=== PATIENT | male | born 1975 | race American Indian/Alaskan Native ===

== ENCOUNTER 2019-09-15 14:15 | Emergency (ER) | payer OTHER ==
--- NOTE | 2019-09-15 14:43 | EDM.PDOC ---
"ED HPI GENERAL MEDICAL PROBLEM - General Chief Complaint: Abdominal Pain Stated Complaint: STOMACH PAIN Time Seen by Provider: 09/15/19 14:43 Source of Information: Reports: Patient, Old Records, RN, RN Notes Reviewed History Limitations: Reports: No Limitations - History of Present Illness INITIAL COMMENTS - FREE TEXT/NARRATIVE: Pt presents to ED via POV with c/o generalized upper abdominal pain from the midline to the right upper abdomen. Pt states that he has had the pain for a few days. He was eating soup last evening and pain got worse and he became nauseated. Pt states that took ibuprofen and antacids for pain. Ibuprofen did not help but antacids were somewhat helpful. Pt rates pain at a 10/10. Denies fever, chills, bloating/distention, vomiting, diarrhea, constipation, or urinary symptoms. The pain does not radiate. Nothing alleviates the pain. Eating aggravates the pain. Onset: Gradual Duration: Constant, Getting Worse Location: Reports: Abdomen Quality: Reports: Ache Severity: Severe Associated Symptoms: Reports: No Other Symptoms Abdominal Pain Score (Numeric/FACES): 10 - Related Data Allergies Allergy/AdvReac Type Severity Reaction Status Date / Time No Known Allergies Allergy Verified 09/15/19 14:31 Home Meds: Home Meds . [No Known Home Meds] 02/08/14 [History] Past Medical History - Past Health History Medical/Surgical History: Denies Medical/Surgical History Social & Family History - Family History Family Medical History: Noncontributory - Tobacco Use Smoking Status *Q: Never Smoker - Alcohol Use Alcohol Use History: Yes Alcohol Use Frequency: Rarely - Living Situation & Occupation Living situation: Reports: with Family ED ROS GENERAL - Review of Systems Review Of Systems: Comprehensive ROS is negative, except as noted in HPI. ED EXAM, GI/ABD - Physical Exam Exam: See Below Exam Limited By: No Limitations General Appearance: Alert, WD/WN, No Apparent Distress, Other (Uncomfortable but non-toxic appearing.). No: Active Emesis Eyes: Bilateral: Normal Appearance (No scleral icterus) Nose: Normal Inspection, Normal Mucosa, No Blood Throat/Mouth: Normal Inspection, Normal Lips, Normal Teeth, Normal Gums, Normal Oropharynx, Normal Voice, No Airway Compromise Head: Atraumatic, Normocephalic Neck: Normal Inspection, Supple, Non-Tender, Full Range of Motion Respiratory/Chest: No Respiratory Distress, Lungs Clear, Normal Breath Sounds, No Accessory Muscle Use, Chest Non-Tender Cardiovascular: Normal Peripheral Pulses, Regular Rate, Rhythm, No Edema, No Gallop, No JVD, No Murmur, No Rub GI/Abdominal Exam: Normal Bowel Sounds, Soft, No Organomegaly, No Distention, No Abnormal Bruit, No Mass, Tender (Epigastric, RUQ). No: Guarding, Rigid, Rebound (Male) Exam: Deferred Rectal (Males) Exam: Deferred Back Exam: Normal Inspection, Full Range of Motion. No: CVA Tenderness (L), CVA Tenderness (R), Vertebral Tenderness Extremities: Normal Inspection Neurological: Alert, Oriented, Normal Cognition, Normal Gait, No Motor/Sensory Deficits Psychiatric: Normal Mood Skin Exam: Warm, Dry, Intact, Normal Color, No Rash Course - Vital Signs Last Recorded V/S: Last Vital Signs Temp 97.4 F 09/15/19 14:32 Pulse 75 09/15/19 14:32 Resp 16 09/15/19 14:32 BP 123/83 09/15/19 14:32 Pulse Ox 100 09/15/19 14:32 - Orders/Labs/Meds Orders: Active Orders 24 hr Category Date Time Status Peripheral IV Care [RC] . DIRECTED Care 09/15/19 14:44 Active Abdomen Pelvis w Cont [CT] Stat Exams 09/15/19 15:54 Taken Sodium Chloride 0.9% [Saline Flush] Med 09/15/19 14:44 Active 10 ml FLUSH ASDIRECTED PRN metroNIDAZOLE/Normal Saline [Flagyl 500 MG in NS 100 ML Med 09/15/19 16:49 Ordered ] 500 mg Premix Bag 100 bag IV ONETIME Peripheral IV Insertion Adult [OM.PC] Stat Oth 09/15/19 14:43 Ordered Medication Orders Metronidazole 500 mg/ Premix 100 mls @ 100 mls/hr IV ONETIME ONE Stop: 09/15/19 17:48 Last Admin: 09/15/19 16:58 Dose: 100 mls/hr Sodium Chloride (Saline Flush) 10 ml FLUSH ASDIRECTED PRN PRN Reason: Keep Vein Open Last Admin: 09/15/19 15:00 Dose: 10 ml Labs: Laboratory Tests 05/03/20 05/03/20 05/03/20 Range/Units 14:46 14:46 15:30 WBC 9.1 (5.0-10.0) 10^3/uL RBC 5.03 (4.6-6.2) 10^6/uL Hgb 13.9 L (14.0-18.0) g/dL Hct 41.8 (40.0-54.0) % MCV 83.1 (80-100) fL MCH 27.6 (27.0-34.0) pg MCHC 33.3 (33.0-35.0) g/dL Plt Count 326 (150-450) 10^3/uL Neut % (Auto) 82.2 H (42.2-75.2) % Lymph % (Auto) 10.2 L (20.5-50.1) % [place] % (Auto) 7.1 (2-8) % Eos % (Auto) 0.3 L (1.0-3.0) % Baso % (Auto) 0.2 (0.0-1.0) % Sodium 137 (136-145) mmol/L Potassium 3.9 (3.5-5.1) mmol/L Chloride 100 (98-107) mmol/L Carbon Dioxide 31 (21-32) mmol/L Anion Gap 9.9 (7-13) mEq/L BUN 16 (7-18) mg/dL Creatinine 1.00 (0.70-1.30) mg/dL Est Cr Clr Drug Dosing 105.62 mL/min Estimated GFR (MDRD) > 60 BUN/Creatinine Ratio 16.0 (No establ ref range) Glucose 114 H (74-99) mg/dL Calcium 8.7 (8.5-10.1) mg/dL Total Bilirubin 0.4 (0.2-1.0) mg/dL AST 20 (15-37) U/L ALT 25 (16-63) U/L Alkaline Phosphatase 90 (46-116) U/L C-Reactive Protein < 0.2 (0.0-0.9) mg/dL Total Protein 7.2 (6.4-8.2) g/dL Albumin 3.5 (3.4-5.0) g/dL Globulin 3.7 Albumin/Globulin Ratio 0.9 Amylase 63 (25-115) U/L Lipase 340 (73-393) U/L Urine Color Yellow (YELLOW) Urine Appearance Clear (CLEAR) Urine pH 7.0 (5.0-9.0) Ur Specific [place] >= 1.030 (1.005-1.030) Urine Protein Negative (NEGATIVE) Urine Glucose (UA) Negative (NEGATIVE) Urine Ketones Negative (NEGATIVE) Urine Occult Blood Negative (NEGATIVE) Urine Nitrite Negative (NEGATIVE) Urine Bilirubin Negative (NEGATIVE) Urine Urobilinogen 0.2 (0.2-1.0) mg/dL Ur Leukocyte Esterase Negative (NEGATIVE) Meds: Medications Generic Name Dose Route Start Last Admin Trade Name Freq PRN Reason Stop Dose Admin Metronidazole 500 mg/ Premix 100 mls @ 100 mls/hr 09/15/19 16:49 09/15/19 16: 58 IV 09/15/19 17:48 100 mls/hr ONETIME ONE Administration Sodium Chloride 10 ml 09/15/19 14:44 09/15/19 15:00 Saline Flush FLUSH 10 ml ASDIRECTED PRN Administration Keep Vein Open Discontinued Medications Generic Name Dose Route Start Last Admin Trade Name Freq PRN Reason Stop Dose Admin Ciprofloxacin 500 mg 09/15/19 16:50 09/15/19 16:58 Ciprofloxacin Hcl PO 09/15/19 16:51 500 mg ONETIME ONE Administration Hydromorphone HCl 1 mg 09/15/19 14:44 09/15/19 15:00 Dilaudid IVPUSH 09/15/19 14:45 1 mg ONETIME ONE Administration Sodium Chloride 1,000 mls @ 999 mls/hr 09/15/19 14:44 09/15/19 14:59 Normal Saline IV 09/15/19 15:44 999 mls/hr .BOLUS ONE Administration Iopamidol 100 ml 09/15/19 15:54 09/15/19 15:58 Isovue-300 (61%) IVPUSH 09/15/19 15:55 100 ml ONETIME ONE Administration Ondansetron HCl 4 mg 09/15/19 14:44 09/15/19 14:59 Zofran IV 09/15/19 14:45 4 mg ONETIME ONE Administration Pantoprazole Sodium 40 mg 09/15/19 16:49 09/15/19 16:58 Protonix Iv IVPUSH 09/15/19 16:50 40 mg ONETIME ONE Administration - Radiology Interpretation Free Text/Narrative:: [facility] [place] [facility] Final Radiology Report Call: [phone] assistance Online chat: [email or web address] Name: AMANDA RASCON Age: 44Years M Date: 09/15/2019 SSN: -- : [id number] Study: CT ABDOMEN/PELVIS W Requesting Physician: ISMAEL TOWNSEND Images: [id number] Addl Studies: Provided Clinical History: Contrast: With Contrast Medium: [id number] Contrast Amount: 100 mL Contrast Method: lac Page 1 of 2 PROCEDURE INFORMATION: Exam: CT Abdomen And Pelvis With Contrast Exam date and time: 09/15/2019 4:15 PM Age: 44 years old Clinical indication: Other: Right sided pain TECHNIQUE: Imaging protocol: Computed tomography of the abdomen and pelvis with intravenous contrast. Radiation optimization: All CT scans at this facility use at least one of these dose optimization techniques: automated exposure control; mA and/or kV adjustment per patient size (includes targeted exams where dose is matched to clinical indication); or iterative reconstruction. Contrast material: [id number]; Contrast volume: 100 ml; Contrast route: LAC; COMPARISON: No relevant prior studies available. FINDINGS: Liver: Normal. No mass. Gallbladder and bile ducts: Normal. No calcified stones. No ductal dilation. Pancreas: Normal. No ductal dilation. Spleen: Normal. No splenomegaly. Adrenals: Normal. No mass. Kidneys and ureters: Normal. No hydronephrosis. Stomach and bowel: A focal out pouching arising from the medial wall of the 1st portion of the duodenum (series 2, image 56), measuring 2.3 x 1.3 cm in axial dimensions, is compatible with a duodenal diverticulum. Fluid and fat stranding surrounds the diverticulum and there is mural thickening involving the 1st and 2nd portions of the duodenum. No evidence of bowel obstruction. Appendix: The appendix is normal in appearance. Intraperitoneal space: No free air. No organized fluid collection. AMANDA RASCON | Final Radiology Report CONFIDENTIALITY STATEMENT This report is intended only for use by the referring physician, and only in accordance with law. If you received this in error, call [phone]. Page 2 of 2 Vasculature: Unremarkable. No abdominal aortic aneurysm. Lymph nodes: Unremarkable. No enlarged lymph nodes. Bladder: Unremarkable as visualized. Reproductive: Unremarkable as visualized. Bones/joints: Mild degenerative changes are noted throughout the visualized spine. Soft tissues: Unremarkable. IMPRESSION: Duodenal diverticulum arising from the medial wall of the 1st portion of the duodenum, with surrounding fat stranding and fluid and adjacent wall thickening. Findings are suspicious for duodenal diverticulitis. Duodenitis and peptic ulcer disease are also possible but felt to be less likely. Thank you for allowing us to participate in the care of your patient. Dictated and Authenticated by: Antonio Ashton MD 09/15/2019 4:45 PM Central Time ([place] & [place]) Departure - Departure Time of Disposition: 17:24 Disposition: Home, Self-Care 01 Condition: Fair Clinical Impression: Diverticulitis of duodenum Abdominal pain Qualifiers: Abdominal location: upper abdomen, unspecified Qualified Code(s): R10.10 - Upper abdominal pain, unspecified - Discharge Information *PRESCRIPTION DRUG MONITORING PROGRAM REVIEWED*: Not Applicable *COPY OF PRESCRIPTION DRUG MONITORING REPORT IN PATIENT ELIAS: Not Applicable Instructions: Abdominal Pain, Adult, [id number], Diverticulitis Forms: ED Department Discharge Additional Instructions: Rx: Zofran 4mg (for nausea) Rx: Omeprazole 20mg (for stomach acid/stomach pain) Rx: Cipro 500mg (antibiotic) Rx: Flagyl 500mg (antibiotic, do not drink any alcohol while taking this medication) Soft, bland diet. Avoid spicy and greasy/fatty foods. Follow up in clinic in the next 3 days for recheck. Sepsis Event Note - Evaluation Sepsis Screening Result: No Definite Risk - Focused Exam Vital Signs: Vital Signs Temp Pulse Resp BP Pulse Ox 09/15/19 14:32 97.4 F 75 16 123/83 100 Date Exam was Performed: 09/15/19 Time Exam was Performed: 17:17 - My Orders Last 24 Hours: My Active Orders 09/15/19 14:43 Peripheral IV Insertion Adult [OM.PC] Stat 09/15/19 14:44 Peripheral IV Care [RC] . DIRECTED Sodium Chloride 0.9% [Saline Flush] 10 ml FLUSH ASDIRECTED PRN 09/15/19 15:54 Abdomen Pelvis w Cont [CT] Stat 09/15/19 16:49 metroNIDAZOLE/Normal Saline [Flagyl 500 MG in NS 100 ML] 500 mg Premix Bag 100 bag IV ONETIME - Assessment/Plan Last 24 Hours: My Active Orders 09/15/19 14:43 Peripheral IV Insertion Adult [OM.PC] Stat 09/15/19 14:44 Peripheral IV Care [RC] . DIRECTED Sodium Chloride 0.9% [Saline Flush] 10 ml FLUSH ASDIRECTED PRN 09/15/19 15:54 Abdomen Pelvis w Cont [CT] Stat 09/15/19 16:49 metroNIDAZOLE/Normal Saline [Flagyl 500 MG in NS 100 ML] 500 mg Premix Bag 100 bag IV ONETIME"
[2019-09-15] MEDS ORDERED: Ondansetron 4 MG/2 ML SDV IV ONE (14:44)
[2019-09-15] MEDS ORDERED: Sodium Chloride 0.9% 10 ML Syringe FLUSH PRN (14:44)
[2019-09-15] MEDS ORDERED: HYDROmorphone 1 MG/ML Syringe IVPUSH ONE (14:44)
[2019-09-15] MEDS ORDERED: Sodium Chloride 0.9% 1,000 ML IV ONE (14:44)
[2019-09-15 15:24] LABS: ANION GAP 9.9 mEq/L (7-13); CHLORIDE,CL 100 mmol/L (98-107); SODIUM,NA 137 mmol/L (136-145)
[2019-09-15] MEDS ORDERED: Iopamidol 612 MG/ML 100 ML Bottle IVPUSH ONE (15:54)
[2019-09-15] MEDS ORDERED: metroNIDAZOLE/Normal Saline 500 MG in Premix Bag 100 BAG IV ONE (16:49)
[2019-09-15] MEDS ORDERED: Pantoprazole 40 MG Vial IVPUSH ONE (16:49)
[2019-09-15] MEDS ORDERED: Ciprofloxacin 500 MG Tab PO ONE (16:50)
== END 2019-09-15 17:56 | disposition home or self-care (01) ==
LOC: DL.ED 14:15
DX: K57.12 Diverticulitis of small intestine without perforation or abscess without bleeding (principal)
CPT/HCPCS: 36415; 74177; 80053; 81003; 82150; 83690; 85025; 86140; 96361; 96365; 96375; 99284; A9270; C9113; J1170; J2405; J3490; J7030; Q9967

== ENCOUNTER 2020-03-02 22:17 | Emergency (ER) | payer MEDICAID, OTHER ==
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
[2020-03-02 22:33] LABS: ANION GAP 10.2 mEq/L (7-13); CHLORIDE,CL 100 mmol/L (98-107); SODIUM,NA 138 mmol/L (136-145)
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
== END 2020-03-03 00:38 | disposition home or self-care (01) ==
LOC: DL.ED 22:17
DX: S63.642A Sprain of metacarpophalangeal joint of left thumb, initial encounter (principal); S80.02XA Contusion of left knee, initial encounter; S80.01XA Contusion of right knee, initial encounter; F10.129 Alcohol abuse with intoxication, unspecified; Y90.6 Blood alcohol level of 120-199 mg/100 ml; V43.63XA Car passenger injured in collision with pick-up truck in traffic accident, initial encounter
CPT/HCPCS: 36415; 70450; 72125; 73130-LT; 73562-LT; 73562-RT; 80053; 80305-QW; 80307; 81003; 85025; 85610; 99284-25